=== PATIENT | female | born 1940 | race Caucasian/White ===

== ENCOUNTER → 2016-07-30 | Outpatient (CLI) | payer BC ==
[~2016-07-30] MED LIST: ASPEC81 PO; ATOR-22 PO; CALCTAB7 PO; CMD1 PO; FISHOIL PO; FRRG PO; GLCSC750600
--- NOTE | 2016-07-30 12:26 | MAMMOGRAPHY REPORT ---
BILATERAL DIGITAL SCREENING MAMMOGRAM WITH CAD: 07/30/2016 TECHNIQUE: Current study was also evaluated with a Computer Aided Detection (CAD) system. Bilatera l CC and MLO views were obtained. COMPARISON: Comparison is made to exams dated: 07/17/2015 mammogram, 07/07/2014 mammogram, 05/28/2011 mammogram, 06/02/2013 mammogram, 05/31/2012 mammogram, and [facility] BREAST COMPOSITION: There are scattered areas of fibroglandular density in both breasts. FINDINGS: No suspicious masses, calcifications, or areas of architectural distortion are noted in e ither breast. There has been no significant interval change compared to prior exams. Small bilatera l fluctuating benign-appearing masses are again noted, which likely represent cysts. Bilateral genaro gn-appearing calcifications are stable. IMPRESSION: ACR BI-RADS CATEGORY 2: BENIGN There is no mammographic evidence of malignancy. A 1 year screening mammogram is recommended. The p atient will receive written notification of the results. Approximately 10% of breast cancers are not detected with mammography. A negative mammographic repor t should not delay biopsy if a clinically suggestive mass is present. Danelle Naidu M.D. ah/:07/30/2016 10:26:41 Manager Flight: Natalia WOLFE)(Daniel), [facility] letter sent: Normal 1/2 BI-RADS Code: ACR BI-RADS Category 2: Benign
== END | disposition home or self-care (01) ==
LOC: C.MAMM 09:44
PROVIDERS: ATTEND Internal Medicine
DX: Z12.31 Encounter for screening mammogram for malignant neoplasm of breast (principal)

== ENCOUNTER → 2017-08-04 | Outpatient (CLI) | payer BC ==
--- NOTE | 2017-08-04 15:24 | MAMMOGRAPHY REPORT ---
BILATERAL DIGITAL SCREENING MAMMOGRAM TOMOSYNTHESIS WITH CAD: 08/04/2017 CLINICAL HISTORY: Routine screening. Patient has no complaints. TECHNIQUE: Breast tomosynthesis in addition to standard 2D mammography was performed. Current study was also evaluated with a Computer Aided Detection (CAD) system. COMPARISON: Comparison is made to exams dated: 07/30/2016 mammogram, 07/17/2015 mammogram, 07/07/2014 ma mmogram, 06/02/2013 mammogram, 05/31/2012 mammogram, and 05/28/2011 mammogram - [facility]. BREAST COMPOSITION: There are scattered areas of fibroglandular density in both breasts. FINDINGS: There is diffuse nodularity bilaterally. However, there is a possible area of architectur al distortion in the lateral, middle one third of the left breast best seen on CC tomosynthesis slice 12/66. Based on the tomosynthesis localizer bar this is in the inferior/lower outer quadrant, altho ugh distortion is not definitely seen on the MLO tomosynthesis images. Nevertheless, additional spot compression tomosynthesis views and possible ultrasound is recommended. There are scattered stable benign-appearing rim calcifications in the breasts. No other new suspicio us mass, architectural distortion or cluster of microcalcifications is seen. IMPRESSION: ACR BI-RADS CATEGORY 0: INCOMPLETE EVALUATION: NEED ADDITIONAL IMAGING EVALUATION The possible area of architectural distortion in the lateral left breast needs additional imaging gretchen luation. The patient will be called to schedule an appointment. Approximately 10% of breast cancers are not detected with mammography. A negative mammographic report should not delay biopsy if a clinically suggestive mass is present. Eneida Walsh M.D. ay/:08/04/2017 10:58:59 Protocol Manager: Precious Blake, [facility] letter sent: Addl Imaging 0 BI-RADS Code: ACR BI-RADS Category 0: Incomplete Evaluation: Need Additional Imaging Evaluation
== END | disposition home or self-care (01) ==
LOC: C.MAMM 09:37
PROVIDERS: ATTEND Internal Medicine
DX: Z12.31 Encounter for screening mammogram for malignant neoplasm of breast (principal); R92.8 Other abnormal and inconclusive findings on diagnostic imaging of breast

== ENCOUNTER → 2017-08-06 | Outpatient (CLI) | payer BC ==
--- NOTE | 2017-08-07 14:43 | MAMMOGRAPHY REPORT ---
UNILATERAL LEFT DIGITAL DIAGNOSTIC MAMMOGRAM TOMOSYNTHESIS AND TARGETED LEFT ULTRASOUND: 08/06/2017 CLINICAL HISTORY: 77-year-old woman called back from screening mammography for possible architectural distortion in the lateral, middle one third of the left breast, best seen on the CC view. TECHNIQUE: Spot compression left CC and MLO tomosynthesis images were obtained. There is a persisten t questionable area of architectural distortion in the lateral middle one third of the left breast (b est seen on spot compression CC tomosynthesis slice 13/63). There is nodularity associated with a po ssible distortion measuring 5 mm. No obvious calcification. Unclear of the correlate on the spot co mpression MLO tomosynthesis images. Further evaluation with ultrasound was performed. COMPARISON: Comparison is made to exams dated: 08/04/2017 mammogram, 07/30/2016 mammogram, 07/17/2015 ma mmogram, 07/07/2014 mammogram, 06/02/2013 mammogram, and 05/31/2012 mammogram - [facility]. BREAST COMPOSITION: There are scattered areas of fibroglandular density in the left breast. FINDINGS: There is a persistent questionable area of architectural distortion in the lateral middle one third of the left breast (best seen on spot compression CC tomosynthesis slice 13/63). There is nodularity associated with a possible distortion measuring 5 mm. No obvious calcification. Unclear of the correlate on the spot compression MLO tomosynthesis images. Further evaluation with ultrasoun d was performed. Targeted ultrasound was performed in the lateral left breast. Multiple clusters of cysts are identif ied. The first in the 3:00 left breast, 4 cm from the nipple, measures approximately 4.1 x 7.0 x 7.2 mm. A second cluster of cysts is identified in the 4:00 left breast, 2 cm from the nipple, with the dominant cystic component measuring 4.1 x 3.5 x 4.9 mm. A third cluster of cysts in the 6:00 left b reast, 2 cm from the nipple is difficult to measure given that the cysts are not all in the same plan e, but it measures approximately 4 mm x 8 mm. No suspicious hypoechoic solid mass identified in the lateral left breast. No definite correlate to the possible area of mammographic distortion. Comparison to many prior left CC mammograms was performed and this area of possible distortion is sti ll more prominent and now increasingly nodular compared to the prior exams. Therefore, definitive ch aracterization with a stereotactic tomosynthesis guided biopsy is recommended. IMPRESSION: ACR BI-RADS CATEGORY 4: SUSPICIOUS, TARGETED ULTRASOUND ACR BI-RADS CATEGORY 4: SUSPICIO US 1. Stereotactic tomosynthesis guided left breast biopsy is recommended for a possible area of neftali ectural distortion in the lateral, middle one third of the left breast, best seen on the CC view, wit h associated 5 mm nodularity near the central portion of the suspected distortion. No definite sonog raphic correlate was identified. These results and recommendations were discussed with the patient at the time of the exam. She tenta tively scheduled the biopsy prior to leaving our department. Approximately 10% of breast cancers are not detected with mammography. A negative mammographic report should not delay biopsy if a clinically suggestive mass is present. Eneida Walsh M.D. ay/:08/06/2017 14:57:07 Agricultural Sciences Professor: Abril Oconnell RT(R)(M), [facility] letter sent: Abnormal 4/5 BI-RADS Code: ACR BI-RADS Category 4: Suspicious Ultrasound BI-RADS: ACR BI-RADS Category 4: Suspici ous
== END | disposition home or self-care (01) ==
LOC: C.MAMM 10:46
PROVIDERS: ATTEND Internal Medicine
DX: R92.8 Other abnormal and inconclusive findings on diagnostic imaging of breast (principal); N64.89 Other specified disorders of breast

== ENCOUNTER → 2017-09-10 | Outpatient (CLI) | payer BC ==
[2017-09-10 09:55] LABS: BASO % 0.5 %; BASO ABS # 0.02 K/uL (0-0.2); EOS % 3.2 %; EOS ABS # 0.14 K/uL (0-0.5); HEMOGLOBIN 13.2 g/dL (12.0-16.0); LYMPH % 37.4 %; LYMPH ABS # 1.66 K/uL (1.2-3.4); MEAN CELL VOLUME 87.3 fL (80-100); MEAN CORPUSCULAR HEMOGLOBIN 28.8 pg (25-34); MEAN PLATELET VOLUME 11.9 fL (7.4-10.4); MONO ABS # 0.31 K/uL (0.11-0.59); NEUT % 51.9 %; NEUT ABS # 2.31 K/uL (1.4-6.5); PLATELET COUNT 219 K/uL (130-400); RED CELL DISTRIBUTION WIDTH CV 12.4 % (11.5-14.5); RED CELL DISTRIBUTION WIDTH SD 39.6 fL (36.4-46.3); WHITE BLOOD COUNT 4.44 K/uL (4.8-10.8)
[2017-09-10 10:27] LABS: ALT/SGPT 25 U/L (12-78); AST/SGOT 22 U/L (15-37); BLOOD UREA NITROGEN 31 mg/dl (7-18); CALCIUM 9.3 mg/dl (8.5-10.1); CARBON DIOXIDE 27 mmol/L (21-32); CHOLESTEROL 154 mg/dl (0-200); CREATININE 0.79 mg/dl (0.60-1.20); GLUCOSE 84 mg/dl (70-99); POTASSIUM 3.9 mmol/L (3.5-5.1); SODIUM 137 mmol/L (136-145)
[2017-09-10 10:36] LABS: HEMOGLOBIN A1C 5.9 % (4.5-5.6)
[2017-09-10 10:38] LABS: LDL CHOLESTEROL CALCULATED 82 mg/dl
== END | disposition home or self-care (01) ==
LOC: C.LAB1850 08:10
PROVIDERS: ATTEND Internal Medicine
DX: E78.5 Hyperlipidemia, unspecified (principal)